=== PATIENT | female | born 1965 | race Caucasian/White ===

== ENCOUNTER 2021-08-21 18:53 | Emergency (ER) | payer MEDICAID ==
[2021-08-21] MEDS ORDERED: Ketorolac Tromethamine 30 MG/ML VIAL ONE (20:41)
[2021-08-21] MEDS ORDERED: Colchicine 0.6 MG TAB ONE (22:11)
== END 2021-08-21 22:31 | disposition home or self-care (01) ==
LOC: CSHERS 18:53
DX: M10.9 Gout, unspecified (principal); K21.9 Gastro-esophageal reflux disease without esophagitis; I10 Essential (primary) hypertension
CPT/HCPCS: 84550; 96372; J1885

== ENCOUNTER 2022-04-16 08:42 | Outpatient (CLI) | payer BC ==
[2022-04-16] MEDS ORDERED: Magnevist 469MG/ML 20 ML VIAL ONE (15:18)
== END 2022-04-16 08:43 | disposition home or self-care (01) ==
LOC: CSHMRI 08:42
PROVIDERS: ATTEND Physician Assistant Medical
DX: K83.8 Other specified diseases of biliary tract (principal); R16.1 Splenomegaly, not elsewhere classified
CPT/HCPCS: 74183; A9579